=== PATIENT | male | born 1965 | race Caucasian/White ===

== ENCOUNTER 2018-12-18 06:24 | Observation (INO) | payer OTHER ==
[~2018-12-18] VITALS: Ht 193 cm; Wt 139.1 kg
[2018-12-18] VITALS (26 sets, daily range): BP systolic 125–164; BP diastolic 82–120; PULSE 63–101; RESP 11–24; Ht 193 cm; Wt 139.1 kg
[~2018-12-18 06:24] MED LIST: ASPI325T30 PO; ATOR20TA38 PO; BENA10TA4 PO; CHOL400T10 PO; CLOP75TA27 PO; FENO134C PO; GABA100C PO; GLIM4TAB PO; ISOS60TA PO; METO25TA4 PO; MTF1000T PO; NITR0.4T39 SL; OMEG100016 PO
[2018-12-18] MEDS ORDERED: SOD CHLORIDE 0.9% 1,000 ML IV ONE (07:30)
[2018-12-18] MEDS ORDERED: RAMI10CA48 PO (07:33)
[2018-12-18] MEDS ORDERED: FENTAnyl 50 MCG/ML VIAL ONE (07:45)
[2018-12-18] MEDS ORDERED: MIDAZOLAM 1 MG/ML 2 ML INJ ONE (07:45)
[2018-12-18] MEDS ORDERED: LIDOCAINE 1% (MDV) 20 ML INJ ONE (07:45)
[2018-12-18] MEDS ORDERED: IODIXANOL LOCM 100 ML BTL ONE (07:45)
[2018-12-18] MEDS ORDERED: SOD CHLORIDE 0.9% 500 ML ONE (07:56)
[2018-12-18] MEDS ORDERED: METHYLPREDNISOLONE 125 MG INJ ONE (08:16)
[2018-12-18] MEDS ORDERED: DIPHENHYDRAMINE 50 MG INJ ONE (08:16)
[2018-12-18] MEDS ORDERED: NITROGLYCERIN (IC) 100 MCG/ML INJ ONE (09:11)
[2018-12-18] MEDS ORDERED: CLOPIDOGREL 300 MG TAB ONE (09:24)
[2018-12-18] MEDS ORDERED: ASPIRIN 325 MG TAB ONE (09:24)
[2018-12-18] MEDS ORDERED: SOD CHLORIDE 0.9% 1,000 ML IV SCH (09:35)
--- NOTE | 2018-12-18 09:47 | OPR ---
Date/Time of Note Date/Time of Note DATE: 12/18/18 TIME: 09:40 Operative Report Procedure Date: December 18, 2018 Preoperative Diagnosis Abnormal stress test Postoperative Diagnosis Obstructive coronary artery disease Operation/Procedure Performed Left heart catheterization Right and left coronary angiogram Interpretation and supervision of right and left coronary angiogram Left ventricular pressure measurements PCI of the mid RCA with a placement of a 2.5 x 12 mm and 2.5 x 16 mm Synergy drug-eluting stent in overlapping fashion Right femoral artery approach with ultrasound guidance Conscious sedation Surgeon see signature line Assembler Type [employer]ment After School Program Director staff Anesthesia Type: MAC Estimated Blood Loss: minimal Transfusion none Specimen None Grafts/Implants none Complications none Pt Condition Post Procedure: stable Procedure Description Findings Hemodynamics LV pressure 156/-18 with EDP of 6 Aortic pressure 144/82 Coronary findings Left main is a large caliber vessel with no significant disease LAD is a medium caliber vessel with diffuse calcification, there is a mid 30% diffuse stenosis, distal 20% diffuse stenosis Circumflex is a medium caliber vessel with diffuse calcification, there is a mid 20% stenosis, distal 30% diffuse stenosis Right RCA was a large caliber vessel and ectatic with diffuse calcification and tortuosity. There was a mid 20% stenosis, the PDA at the bifurcation had an ostial 50 to 60% stenosis, mid PDA with a 99% stenosis. PLB with a mid 30% stenosis Description of procedure Patient brought to the After School Program Director after informed consent. Patient prepped and draped as per protocol. Right femoral artery access was obtained using ultrasound guidance and a 6 [place] sheath was placed. To engage the left main, we were unsuccessful with a 6 [place] JL4, JL 4.5, was able to engage with a JL 5. Svitlana Kenan was performed. We next used a JR4 catheter and entered the left ventricle and pressure measurements were obtained as well as pullback. We next did an angiogram of the RCA. Given the severe disease in the mid PDA as well as nuclear findings with ischemia in this territory, intervention was performed in the same setting. Heparin was used for anticoagulation, 6 [place] AL-1 guide catheter was used to engage the RCA. A run through wire was used to cross the lesion with moderate difficulty. We then predilated. We then stented with a 2.25 x 16 mm Synergy drug-eluting stent at high pressure. Of note, with stent placement, there was no flow seen distally because of the stenosis and was unclear the lesion was fully covered. After placement of the stent, we were able to see that the proximal aspect of the stenosis was not fully covered. We then used a 2.25 x 12 mm Synergy drug-eluting stent in overlapping fashion and covered the remaining of the stenosis. We postdilated at high pressure the amrit nts including the overlapping regions. There was an excellent angiographic result with KENDAL-3 flow with no evidence of dissection. Of note, there was a 50 to 60% stenosis of the ostial PDA. On review of the angiogram in 2014, this was present at that time as well. Given the moderate disease, as well as not being the culprit lesion and risk of jailing the PLB, would opt for aggressive medical management. All catheters and wires removed. An Angio-Seal was used in the right femoral artery with no immediate complications. Recommendations Aggressive medical management, dual antiplatelet therapy for minimum of 1 year to maintain stent patency. Blayne Edmond DO December 18, 2018 09:47
[2018-12-18] MEDS ORDERED: AL HYDROX/MG HYDROX/SIMETH 30 ML CUP PO PRN (10:00)
[2018-12-18] MEDS ORDERED: ACETAMINOPHEN 325 MG TAB PO PRN (10:00)
[2018-12-18] MEDS ORDERED: ONDANSETRON 4 MG INJ IV PRN (10:00)
--- NOTE | 2018-12-18 11:21 | HP ---
Date/Time of Note Date/Time of Note DATE: 12/18/18 TIME: 11:21 Assessment/Plan VTE Prophylaxis Pharmacological prophylaxis: NA/contraindicated Pharm contraindication: low risk/ambulating Lines/Catheters IV [facility]ter [facility]from [facility]): Peripheral IV Assessment/Plan Hospital Course 53-year-old male with comorbidities including dyslipidemia, hypertension, sleep apnea, diabetes mellitus type 2, CVA with no residual, and prior CAD with coronary artery stenting, who was brought in electively before left heart catheterization with PCI of mid RCA with placement of 2 Synergy drug-eluting stents, also being admitted to inpatient setting for further treatment evaluation. 1. Obstructive coronary artery disease. -Status post PCI of the mid RCA with placement of 2 drug-eluting stents in overlapping fashion. -Continue dual antiplatelet therapy. -Monitor in intensive care unit. -Resume cardiac medications including beta-blockers and statins. 2. Hypertension. -Continue antihypertensives. 3. DM type II. -Start the patient sliding scale insulin along with pre-meal insulin and basal insulin. -Obtain hemoglobin A1c to evaluate the blood glucose control over the past few weeks. -Diabetic education consult. 4. Dyslipidemia. -Resume statins. 5. Obstructive sleep apnea. -Resume nocturnal CPAP. 6. Obesity. -BMI more than 37. Plan: The patient will be admitted to inpatient intensive care unit floor. The patient will be started on a low-cholesterol, carbohydrate controlled diet. The patient will be started on DVT prophylaxis . The patient will remain a full code. Activities will be as tolerated. The rest of the patient's management will be based on the clinical course, inputs from consultants, and the results of diagnostic studies. Based on the patient's clinical presentation, he most probably requires at least 1 midnight's stay for further management and evaluation of his clinical presentation. The patient was seen in collaboration with Dr. Coronado. Result Diagram: 12/18/18 0712/18/18704 Results 24hrs Laboratory Tests Test 12/18/18 07:05 12/18/18 07:23 White Blood Count 6.7 Red Blood Count 5.38 Hemoglobin 15.3 Hematocrit 46.0 Mean Corpuscular Volume 85.5 Mean Corpuscular Hemoglobin 28.4 L Mean Corpuscular Hemoglobin Concent 33.3 Red Cell Distribution Width 13.2 Platelet Count 245 Mean Platelet Volume 10.3 # Immature Granulocytes % 0.500 H Neutrophils % 84.2 H Lymphocytes % 12.2 L Monocytes % 1.7 Eosinophils % 0.9 Basophils % 0.5 Nucleated Red Blood Cells % 0.0 Immature Granulocytes # 0.030 Neutrophils # 5.6 Lymphocytes # 0.8 Monocytes # 0.1 L Eosinophils # 0.1 Basophils # 0.0 Nucleated Red Blood Cells # 0.0 Prothrombin Time 12.1 Prothrombin Time Ratio 0.9 INR International Normalized Ratio 0.89 Activated Partial Thromboplast Time 28.4 Sodium Level 141 Potassium Level 5.3 H Chloride Level 107 Carbon Dioxide Level 22 Anion Gap 12 Blood Urea Nitrogen 33 H Creatinine 1.16 Est Glomerular Filtrat Rate mL/min > 60 Glucose Level 359 H Calcium Level 10.6 H Bedside Glucose 359 H HPI/ROS Admit Date/Time Admit Date/Time December 18, 2018 at 09:35 Hx of Present Illness This is a 53-year-old male with past medical history of hypertension, dyslipidemia, obstructive sleep apnea, diabetes mellitus type 2, CVA with no residual, CAD status post stenting of PDA and posterolateral branch of the RCA in 2014. The patient was brought to [facility] Phlebotomist Supervisor/Instructor for elective procedure. The patient reported that the he had a recent stress test that was reportedly abnormal. The patient had a PCI of the mid RCA with placement of 2 synergy drug-eluting stents in overlapping fashion via a right femoral artery approach. The patient is being admitted to inpatient setting for further treatment and monitoring. Industrial Servicer asked the hospitalist group to admit this patient to inpatient setting. The patient was in PACU upon initial evaluation. The patient denied any chest pain, dyspnea, or any other complaints. ROS Constitutional: no complaints Eyes: no complaints ENT: no complaints Respiratory: no complaints Cardiovascular: no complaints Gastrointestinal: no complaints Genitourinary: no complaints Musculoskeletal: no complaints Skin: no complaints Neurologic: no complaints Endocrine: no complaints Lymphatic: no complaints Psychological: no complaints Immunologic: no complaints PMH/Family/Social Past Medical History 1. Hypertension. 2. Diabetes mellitus type 2. 3. CAD status post prior coronary artery stenting. 4. Obstructive sleep apnea. 5. Dyslipidemia. 6. Obesity. 7. CVA with no residual deficits. Medications Current Medications Aspirin (Halfprin) 81 mg DAILY PO ; Start 12/19/18 at 09:00 Clopidogrel Bisulfate (plaVIX) 75 mg DAILY PO ; Start 12/19/18 at 09:00 Acetaminophen (Tylenol Tab) 650 mg Q4H PRN PO PAIN; Start 12/18/18 at 10:00 Al Hydrox/Mg Hydrox/Simethicone (Mag-Al Plus) 30 ml Q4H PRN PO GASTROINTESTINAL UPSET; Start 12/18/18 at 10:00 Ondansetron HCl (Zofran Inj) 4 mg Q4H PRN IV NAUSEA AND/OR VOMITING; Start 12/18/18 at 10:00 Sodium Chloride 1,000 ml @ 75 mls/hr [id number] IV ; Start 12/18/18 at 09:35; Stop 12/18/18 at 22:54 Atorvastatin Calcium (Lipitor) 40 mg HS PO ; Start 12/18/18 at 21:00 Metoprolol Tartrate (Lopressor) 25 mg BID PO ; Start 12/18/18 at 21:00 Coded Allergies: ibuprofen (Verified Allergy, Intermediate, HIVES, 06/30/15) tramadol (Verified Allergy, Unknown, 06/30/15) Uncoded Allergies: IV CONTRAST (Allergy, Unknown, RASH AND SKIN PEELING ALL OVER, 12/18/18) Past Surgical History 1. Tonsillectomy. 2. Left heart catheterization with stent placement to the PDA on 06/21/2015. 3. Left heart catheterization with stent placement to posterolateral branch of RCA on 06/27/2015. Social History The patient lives at home. Alcohol Use: occasionally Smoking Status: Former smoker Drug Use: marijuana Exam/Review of Systems Vital Signs Vitals Vital Signs Date Temp Pulse Resp B/P (MAP) Pulse Ox O2 O2 Flow FiO2 Time Delivery Rate 12/18/18 78 21 126/94 96 Room Air 10:34 (105) 12/18/18 98.0 10:05 Exam Exam General: Obese, 53 year-old male lying in bed in no apparent distress. HEENT: Normocephalic, atraumatic. Eyes: Anicteric sclerae, conjunctivae clear. ENT: Nasal septum midline, oral mucosa moist. Neck: Short and obese. Respiratory: Bilaterally diminished breath sounds. No use of accessory muscles of respiration. No adventitious breath sounds. Cardiovascular: S1, S2 heard. Regular rate and rhythm. Abdomen: Soft, nontender, and nondistended. Bowel sounds positive in all 4 quadrants. Genitourinary: Right groin access site with no evidence of hematoma or bruising. Extremities: No cyanosis, no clubbing, no edema. Peripheral pulses palpable. Neurologic: Cranial nerves II through XII grossly intact. The patient is awake, alert, and oriented. Skin: Normal skin turgor. No skin rashes. Additional Comments Operative Report Procedure Date: December 18, 2018 Preoperative Diagnosis Abnormal stress test Postoperative Diagnosis Obstructive coronary artery disease Operation/Procedure Performed Left heart catheterization Right and left coronary angiogram Interpretation and supervision of right and left coronary angiogram Left ventricular pressure measurements PCI of the mid RCA with a placement of a 2.5 x 12 mm and 2.5 x 16 mm Synergy drug-eluting stent in overlapping fashion Right femoral artery approach with ultrasound guidance MELE CASTELLANOS NP December 18, 2018 11:21
[2018-12-18] MEDS ORDERED: GLUCOSE GEL 15 GRAM TUBE PO PRN ×2 (12:00)
[2018-12-18] MEDS ORDERED: GLUCOSE GEL 15 GRAM TUBE BUCCAL PRN (12:00)
[2018-12-18] MEDS ORDERED: GLUCAGON 1 MG INJ IM PRN (12:00)
[2018-12-18] MEDS ORDERED: DEXTROSE 50% 50 ML SYRINGE IV PRN ×2 (12:00)
--- NOTE | 2018-12-18 12:23 | CONS ---
Assessment/Plan Assessment/Plan Hospital Course (Demo Recall) CAD status post PCI to PDA with a placement of 2 drug-eluting stents 12/18/2018 Diabetes Hypertension Renal dysfunction -Patient with nuclear cardiac perfusion study with evidence of ischemia, patient status post cardiac catheter this morning status post 2 drug-eluting stents to PDA. -Dual antiplatelet therapy for minimum of 1 year to maintain stent patency -Statin therapy, beta-blockers heart rate and blood pressure permits -Aggressive diabetes management. I have requested nutrition and service desk associate to evaluate patient -Renal dysfunction, I requested renal for evaluation Consultation Date/Type/Reason Admit Date/Time December 18, 2018 at 09:35 Type of Consult Cardiology Reason for Consultation Coronary artery disease Date/Time of Note DATE: 12/18/18 TIME: 12:20 Hx of Present Illness This is a 53-year-old male with past medical history of CAD with multiple PCI's in 2014, hypertension, diabetes who presents secondary to abnormal nuclear stress test performed at outside facility. Patient was having intermittent chest discomfort at that time. She denies any current shortness of breath. Denies any dizziness or lightheadedness. 12 point review of systems was performed with all pertinent positives and negatives mentioned above and all else is negative Past Medical History Medical History: coronary artery disease, diabetes, high cholesterol Home Meds Active Scripts Aspirin* (Aspirin*) 325 Mg Tablet, 325 MG PO DAILY, #30 TAB 3 Refills Prov:LASHAY CORADO MD 06/28/15 Clopidogrel Bisulfate (Clopidogrel) 75 Mg Tab, 75 MG PO DAILY, #30 TAB 12 Refills Prov:LASHAY CORADO MD 06/28/15 Atorvastatin Calcium* (Atorvastatin Calcium*) 20 Mg Tab, 40 MG PO HS, #30 Prov:ALCIRA CHAHAL 06/22/15 Reported Medications Ramipril (Ramipril) 10 Mg Capsule, 10 MG PO DAILY, CAP 12/18/18 Isosorbide Mononitrate* (Isosorbide Mononitrate*) 60 Mg Tab.er.24h, 60 MG PO DAILY, TAB 06/30/15 [place]-3 Fatty Acids ([place]-3) 1,000 Mg Capsule, 1000 MG PO DAILY 06/18/15 Metoprolol Tartrate* (Lopressor*) 25 Mg Tablet, 25 MG PO BID, TAB 06/18/15 Gabapentin* (Neurontin*) 100 Mg Capsule, 300 MG PO TID, CAP 06/18/15 Nitroglycerin* (Nitrostat*) 0.4 Mg Tab.subl, 0.4 MG SL Q5MIN PRN for CHEST PAIN, BOTTLE 06/18/15 Cholecalciferol* (Vitamin D*) 400 Unit Tablet, 400 UNIT PO DAILY, TAB 06/18/15 Fenofibrate, Micronized (Fenofibrate) 134 Mg Capsule, 134 MG PO DAILY, CAP 06/18/15 Benazepril Hcl* (Benazepril Hcl*) 10 Mg Tablet, 10 MG PO DAILY, TAB 06/18/15 Glimepiride* (Glimepiride*) 4 Mg Tablet, 4 MG PO BID, TAB 12/11/14 Metformin* (Glucophage*) 1,000 Mg Tablet, 1000 MG PO BID, TAB 12/11/14 Medications Current Medications Aspirin (Halfprin) 81 mg DAILY PO ; Start 12/19/18 at 09:00 Clopidogrel Bisulfate (plaVIX) 75 mg DAILY PO ; Start 12/19/18 at 09:00 Acetaminophen (Tylenol Tab) 650 mg Q4H PRN PO PAIN; Start 12/18/18 at 10:00 Al Hydrox/Mg Hydrox/Simethicone (Mag-Al Plus) 30 ml Q4H PRN PO GASTROINTESTINAL UPSET; Start 12/18/18 at 10:00 Ondansetron HCl (Zofran Inj) 4 mg Q4H PRN IV NAUSEA AND/OR VOMITING; Start 12/18/18 at 10:00 Sodium Chloride 1,000 ml @ 75 mls/hr [id number] IV Last administered on 12/18/18at 11:54; Admin Dose 75 MLS/HR; Start 12/18/18 at 09:35; Stop 12/18/18 at 22:54 Atorvastatin Calcium (Lipitor) 40 mg HS PO ; Start 12/18/18 at 21:00 Metoprolol Tartrate (Lopressor) 25 mg BID PO ; Start 12/18/18 at 21:00 Insulin Glargine (Lantus) 21 units DAILY@2000 SC ; Start 12/18/18 at 20:00 Insulin Aspart (Novolog Insulin Pen) 7 unit WITH MEALS SC ; Start 12/18/18 at 12:00 Insulin Aspart (Novolog Insulin Pen) NOVOLOG *MILD* ALGORITHM WITH MEALS BEDTIME SC ; Start 12/18/18 at 12:00 Miscellaneous Information 1 ea NOTE XX ; Start 12/18/18 at 12:00 Glucose (Glutose) 15 gm Q15M PRN PO DECREASED GLUCOSE; Start 12/18/18 at 12:00 Glucose (Glutose) 22.5 gm Q15M PRN PO DECREASED GLUCOSE; Start 12/18/18 at 12:00 Dextrose (D50w Syringe) 25 ml Q15M PRN IV DECREASED GLUCOSE; Start 12/18/18 at 12:00 Dextrose (D50w Syringe) 50 ml Q15M PRN IV DECREASED GLUCOSE; Start 12/18/18 at 12:00 Glucagon (Glucagen) 1 mg Q15M PRN IM DECREASED GLUCOSE; Start 12/18/18 at 12:00 Glucose (Glutose) 15 gm Q15M PRN BUCCAL DECREASED GLUCOSE; Start 12/18/18 at 12:00 Allergies: Coded Allergies: ibuprofen (Verified Allergy, Intermediate, HIVES, 06/30/15) tramadol (Verified Allergy, Unknown, 06/30/15) Uncoded Allergies: IV CONTRAST (Allergy, Unknown, RASH AND SKIN PEELING ALL OVER, 12/18/18) Past Surgical History Past Surgical Hx: angioplasty Social History Alcohol Use: occasionally Smoking Status: Former smoker Drug Use: marijuana Exam/Review of Systems Vital Signs Vitals Vital Signs Date Temp Pulse Resp B/P (MAP) Pulse Ox O2 O2 Flow FiO2 Time Delivery Rate 12/18/18 78 21 126/94 96 Room Air 10:34 (105) 12/18/18 98.0 10:05 Exam Constitutional: alert, oriented (Obese, no apparent distress) Head: normocephalic Respiratory: clear to auscultation, normal air movement Cardiovascular: regular rate and rhythm (S1-S2 heard) Gastrointestinal: soft, non-tender, bowel sounds Extremities: edema (Trace) Labs Result Diagram: 12/18/18 0705 12/18/18 0705 Results 24hrs Laboratory Tests Test 12/18/18 07:05 12/18/18 07:23 White Blood Count 6.7 Red Blood Count 5.38 Hemoglobin 15.3 Hematocrit 46.0 Mean Corpuscular Volume 85.5 Mean Corpuscular Hemoglobin 28.4 L Mean Corpuscular Hemoglobin Concent 33.3 Red Cell Distribution Width 13.2 Platelet Count 245 Mean Platelet Volume 10.3 # Immature Granulocytes % 0.500 H Neutrophils % 84.2 H Lymphocytes % 12.2 L Monocytes % 1.7 Eosinophils % 0.9 Basophils % 0.5 Nucleated Red Blood Cells % 0.0 Immature Granulocytes # 0.030 Neutrophils # 5.6 Lymphocytes # 0.8 Monocytes # 0.1 L Eosinophils # 0.1 Basophils # 0.0 Nucleated Red Blood Cells # 0.0 Prothrombin Time 12.1 Prothrombin Time Ratio 0.9 INR International Normalized Ratio 0.89 Activated Partial Thromboplast Time 28.4 Sodium Level 141 Potassium Level 5.3 H Chloride Level 107 Carbon Dioxide Level 22 Anion Gap 12 Blood Urea Nitrogen 33 H Creatinine 1.16 Est Glomerular Filtrat Rate mL/min > 60 Glucose Level 359 H Calcium Level 10.6 H Bedside Glucose 359 H Medications Medications Current Medications Aspirin (Halfprin) 81 mg DAILY PO ; Start 12/19/18 at 09:00 Clopidogrel Bisulfate (plaVIX) 75 mg DAILY PO ; Start 12/19/18 at 09:00 Acetaminophen (Tylenol Tab) 650 mg Q4H PRN PO PAIN; Start 12/18/18 at 10:00 Al Hydrox/Mg Hydrox/Simethicone (Mag-Al Plus) 30 ml Q4H PRN PO GASTROINTESTINAL UPSET; Start 12/18/18 at 10:00 Ondansetron HCl (Zofran Inj) 4 mg Q4H PRN IV NAUSEA AND/OR VOMITING; Start 12/18/18 at 10:00 Sodium Chloride 1,000 ml @ 75 mls/hr [id number] IV Last administered on 12/18/18at 11:54; Admin Dose 75 MLS/HR; Start 12/18/18 at 09:35; Stop 12/18/18 at 22:54 Atorvastatin Calcium (Lipitor) 40 mg HS PO ; Start 12/18/18 at 21:00 Metoprolol Tartrate (Lopressor) 25 mg BID PO ; Start 12/18/18 at 21:00 Insulin Glargine (Lantus) 21 units DAILY@2000 SC ; Start 12/18/18 at 20:00 Insulin Aspart (Novolog Insulin Pen) 7 unit WITH MEALS SC ; Start 12/18/18 at 12:00 Insulin Aspart (Novolog Insulin Pen) NOVOLOG *MILD* ALGORITHM WITH MEALS BEDTIME SC ; Start 12/18/18 at 12:00 Miscellaneous Information 1 ea NOTE XX ; Start 12/18/18 at 12:00 Glucose (Glutose) 15 gm Q15M PRN PO DECREASED GLUCOSE; Start 12/18/18 at 12:00 Glucose (Glutose) 22.5 gm Q15M PRN PO DECREASED GLUCOSE; Start 12/18/18 at 12:00 Dextrose (D50w Syringe) 25 ml Q15M PRN IV DECREASED GLUCOSE; Start 12/18/18 at 12:00 Dextrose (D50w Syringe) 50 ml Q15M PRN IV DECREASED GLUCOSE; Start 12/18/18 at 12:00 Glucagon (Glucagen) 1 mg Q15M PRN IM DECREASED GLUCOSE; Start 12/18/18 at 12:00 Glucose (Glutose) 15 gm Q15M PRN BUCCAL DECREASED GLUCOSE; Start 12/18/18 at 12:00 Blayne Edmond DO December 18, 2018 12:23
[2018-12-18] MEDS: INSULIN ASPART [NOVOLOG] 3 ML PEN SC SCH ×5 (13:34→21:07)
--- NOTE | 2018-12-18 15:56 | RADRPT ---
Vent Rate: 69 bpm RR Interval: 868 msec CA Interval: 260 msec QRS Duration: 127 msec QT Interval: 432 msec QTC Interval: 464 msec P-R-T [place]: 82 - -63 - 26 degrees Sinus rhythm...normal P axis, V-rate 50- 99 Prolonged CA interval...CA >210, V-rate 50- 90 Nonspecific IVCD with LAD...QRSd >115mS & LAD Left ventricular hypertrophy...multiple LVH criteria Anterior Q waves, possibly due to LVH...Q >30mS in V2-V5 & LVH Electronically Signed By: Alfonso Nunez
[2018-12-18] MEDS ORDERED: METOPROLOL 50 MG TAB PO ONE (19:24)
[2018-12-18] MEDS ORDERED: INSULIN GLARGINE [LANTus] (100 UNITS/ML) SYG SC SCH (20:00)
--- NOTE | 2018-12-18 20:55 | CONS ---
DATE OF ADMISSION: 12/18/2018 DATE OF CONSULTATION: 12/18/2018 TYPE OF CONSULTATION: Nephrology. REASON FOR CONSULTATION: Hyperkalemia. PHYSICIAN REQUESTING CONSULT: Dr. Edmond. HISTORY OF PRESENT ILLNESS: This is a 53-year-old male with a past medical history of dyslipidemia, hypertension, sleep apnea, diabetes, CVA, and history of recurrent C who presents to [facility] to undergo cardiac catheterization by info print press operator, Dr. Edmond. The patient reportedly had a recent abnormal stress test. Given his history of coronary artery disease, the patient underwe nt cardiac catheterization. The patient had PCI of his mid RCA and replacement drug-eluting st ents. The patient following the procedure went to the intensive care unit for evaluation. In terms of patient's renal history, the patient has had normal renal function and creatinines in the past. Upon admission, the patient noted to have elevated BUN of 33, potassium 5.3 mEq/L. The patie nt denies any hemoptysis, hematemesis, or hematochezia. PAST MEDICAL HISTORY: As stated above, history of hypertension, history of diabetes, history of dysl ipidemia, sleep apnea, CVA, and history of coronary artery disease. PAST SURGICAL HISTORY: 1. Status post PCI. 2. History of tonsillectomy. FAMILY HISTORY: No family history of kidney disease. SOCIAL HISTORY: Former smoker. MEDICATIONS: The patient's medications have been reviewed. ALLERGIES: HAVE BEEN REVIEWED. THE PATIENT IS ALLERGIC TO IV CONTRAST. REVIEW OF SYSTEMS: A 14-point review of systems was conducted. Pertinent positives are as stated i n the HPI, otherwise negative. PHYSICAL EXAMINATION: VITAL SIGNS: Blood pressure is 141, respiration 19, pulse is 73, and temperature 97.8. HEENT: Head is normocephalic. Pupils are reactive to light. NECK: Supple. HEART: Regular rate. LUNGS: Show diminished breath sounds at the base. ABDOMEN: Soft. Nontender to palpation without rebound or guarding. Positive obesity. EXTREMITIES: Negative for clubbing or cyanosis. No edema. DERMATOLOGIC: No rashes. MUSCULOSKELETAL: No joint effusion. NEUROLOGIC: No focal deficits. The patient's medications have been reviewed. LABORATORY DATA: On 12/18/2018 was reviewed. ASSESSMENT AND PLAN: This is a 53-year-old male who presents with: 1. Hyperkalemia. Etiology is likely secondary to hyperglycemia. Recommendation would be to obtain euglycemia and repeat renal panel. Would expect potassium levels normalize. We will start the patie nt on a low-potassium diet. 2. , renal insufficiency. Etiology may be secondary to hemodynamics. Plan is to check UA with microanalysis. We will check urine electrolytes. We will quantify any proteinuria in the setting o f diabetes and monitor closely. Additionally, we will monitor for any signs of contrast-associated n ephropathy. We will continue gentle IV hydration. 3. Coronary artery disease. The patient is status post percutaneous coronary intervention to the [facility] coronary artery. Continue current medical management. Continue antiplatelet therapy. Follow up with cardiology. 4. Hypertension. Continue blood pressure regimen. 5. Diabetes. Continue current insulin regimen. 6. Continue statin therapy. 7. Tachycardia. Continue CPAP. 8. Obesity. Continue dietary modification. Thank you, Dr. Edmond, for this interesting consult. It will be a pleasure to follow patient with yo u throughout the hospital course. Dictated By: DONALD NEAL DO NR/NTS Conf#: [id number] DID#: [id number] CC: DANIS FLORES; DARREL KIDD MD; TELLO CASTELLON MD; ISRAEL PERKINS MD; ALEXANDRA MCKENZIE MD; LILIANA VERGARA DO; IZA TERRAZAS MD; ISRAEL CORONA MD; DARREL HUNG MD;*EndCC*
[2018-12-18] MEDS ORDERED: METOPROLOL 25 MG TAB PO SCH (21:00)
[2018-12-18] MEDS ORDERED: METOPROLOL 50 MG TAB PO SCH (21:00)
[2018-12-18] MEDS ORDERED: ATORVASTATIN 40 MG TAB PO SCH (21:00)
[2018-12-18] MEDS: GABAPENTIN 300 MG CAP PO SCH (21:03)
[2018-12-18] MEDS ORDERED: hydrALAzine 20 MG INJ IV PRN (22:30)
[2018-12-19] VITALS (19 sets, daily range): BP systolic 102–163; BP diastolic 55–103; PULSE 62–81; RESP 8–20
[2018-12-19] MEDS ORDERED: MAGNESIUM SULFATE 2 GM/50 ML 50 ML IVPB ONE ×3 (06:30→10:30)
[2018-12-19] MEDS: INSULIN ASPART [NOVOLOG] 3 ML PEN SC SCH ×3 (08:01→11:55)
--- NOTE | 2018-12-19 08:15 | PN ---
DATE: 12/19/2018 SUBJECTIVE: The patient this morning is stable. The patient is describing feeling not himself, but denies any chest pain, fevers, chills, nausea, vomiting. OBJECTIVE: VITAL SIGNS: Blood pressure is 152/102, respirations 20, pulse 75, temperature 98.2. HEENT: Head is normocephalic. NECK: Supple. HEART: Regular rate. LUNGS: Show diminished breath sounds at the base. ABDOMEN: Soft, nontender to palpation without rebound or guarding. EXTREMITIES: Negative for clubbing, cyanosis, no edema. DERMATOLOGIC: No rashes. MUSCULOSKELETAL: No joint effusion. NEUROLOGIC: No change in exam. MEDICATIONS: The patient's medications have been reviewed. LABORATORY DATA: From 12/19/2018 was reviewed. ASSESSMENT AND PLAN: 1. Hyperkalemia, resolved. Etiology is likely secondary to hyperglycemia. The patient's potassium levels have normalized. We would continue current medical management and monitor closely. 2. Azotemia/renal insufficiency. Etiology is likely secondary to hemodynamics. Renal function is s table, no evidence of contrast-associated nephropathy. Continue to monitor. 3. Hypomagnesemia. We will replete with magnesium sulfate 2 grams IV. 4. Coronary artery disease, status post percutaneous coronary intervention to the right coronary art gui. Continue medical management. Continue antibiotic therapy. 5. Diabetes. Continue to adjust insulin regimen. 6. Hypertension. Continue current blood pressure regimen. 7. Leukocytosis, systemic inflammatory response syndrome, likely secondary to stress. No evidence o f infection. Continue to monitor. 8. Obesity. Continue dietary modification. 9. Sleep apnea. Continue CPAP. Dictated By: DONALD NEAL DO NR/NTS Conf#: [id number] DID#: [id number] CC: ISRAEL PERKINS MD;*EndCC*
[2018-12-19] MEDS ORDERED: CLOPIDOGREL 75 MG TAB PO SCH (09:00)
[2018-12-19] MEDS ORDERED: ASPIRIN (EC) 81 MG TAB PO SCH (09:00)
[2018-12-19] MEDS: GABAPENTIN 300 MG CAP PO SCH ×2 (09:08→12:03)
[2018-12-19] MEDS ORDERED: BENAZEPRIL 10 MG TAB PO SCH (10:30)
[2018-12-19] MEDS ORDERED: MTF1000T PO (11:19)
[2018-12-19] MEDS ORDERED: INSU100I12 SQ (11:19)
[2018-12-19] MEDS ORDERED: ASPI-1044 PO (11:19)
[2018-12-19] MEDS ORDERED: INSU100I33 SC (11:19)
[2018-12-19] MEDS ORDERED: GLIP10TA14 PO (11:20)
[2018-12-19] MEDS ORDERED: INSULIN ASPART [NOVOLOG] 3 ML PEN SC SCH (11:30)
--- NOTE | 2018-12-19 11:30 | CONS ---
Assessment/Plan Assessment/Plan Hospital Course (Demo Recall) CAD status post PCI to PDA with a placement of 2 drug-eluting stents 12/18/2018 Diabetes Hypertension Renal dysfunction -Patient with nuclear cardiac perfusion study with evidence of ischemia, patient status post cardiac catheterization yesterday and status post 2 drug-eluting stents to PDA. -Dual antiplatelet therapy for minimum of 1 year to maintain stent patency -Statin therapy, beta-blockers heart rate and blood pressure permits -Aggressive diabetes management. I have requested nutrition and nurses educator to evaluate patient-still pending -Spoke to nephrology, okay to restart QAMAR inhibitor -DC planning Consultation Date/Type/Reason Admit Date/Time December 18, 2018 at 09:35 Initial Consult Date Type of Consult Cardiology Date/Time of Note DATE: 12/19/18 TIME: 11:28 24 HR Interval Summary Free Text/Dictation Denies chest pain, shortness of breath, palpitations. Ambulating without any symptoms Exam/Review of Systems Vital Signs Vitals Vital Signs Date Temp Pulse Resp B/P (MAP) Pulse Ox O2 O2 Flow FiO2 Time Delivery Rate 12/19/18 18 137/98 97 Room Air 10:00 (111) 12/19/18 72 09:00 12/19/18 97.9 08:00 12/19/18 30 05:11 Intake and Output 12/18/18 12/18/18 12/19/18 1515:00 23:00 07:00 IntakeIntake Total 825 ml 1000 ml 215 ml OutputOutput Total 550 ml 1150 ml BalanceBalance 825 ml 450 ml -935 ml Exam Constitutional: alert, oriented (No apparent distress) Head: normocephalic Respiratory: clear to auscultation, normal air movement Cardiovascular: regular rate and rhythm (S1-S2 heard) Gastrointestinal: soft, non-tender, bowel sounds Extremities: other (No edema, right groin is soft, +2 pulse, no hematoma felt) Labs Result Diagram: 12/19/1843912/19/18439 Results 24hrs Laboratory Tests Test 12/18/18 13:31 12/18/18 17:25 12/18/18 20:05 12/18/18 21:05 Bedside Glucose 267 H 272 H 299 H 275 H Test 12/19/18 04:40 12/19/18 07:51 White Blood Count 14.9 #H Red Blood Count 4.93 Hemoglobin 14.2 Hematocrit 42.2 Mean Corpuscular Volume 85.6 Mean Corpuscular 28.8 L Hemoglobin Mean Corpuscular 33.6 Hemoglobin Concent Red Cell Distribution 13.2 Width Platelet Count 230 Mean Platelet Volume 10.0 Immature Granulocytes % 0.500 H Neutrophils % 81.0 H Lymphocytes % 11.0 L Monocytes % 7.2 Eosinophils % 0.2 Basophils % 0.1 Nucleated Red Blood 0.0 Cells % Immature Granulocytes # 0.070 H Neutrophils # 12.1 H Lymphocytes # 1.6 Monocytes # 1.1 H Eosinophils # 0.0 Basophils # 0.0 Nucleated Red Blood 0.0 Cells # Sodium Level 140 Potassium Level 4.8 Chloride Level 106 Carbon Dioxide Level 25 Anion Gap 9 Blood Urea Nitrogen 31 H Creatinine 1.20 Est Glomerular Filtrat > 60 Rate mL/min Glucose Level 270 H Calcium Level 9.5 Phosphorus Level 4.3 Magnesium Level 1.6 L Bedside Glucose 263 H Medications Medications Current Medications Aspirin (Halfprin) 81 mg DAILY PO Last administered on 12/19/18at 09:09; Admin Dose 81 MG; Start 12/19/18 at 09:00 Clopidogrel Bisulfate (plaVIX) 75 mg DAILY PO Last administered on 12/19/18at 09:08; Admin Dose 75 MG; Start 12/19/18 at 09:00 Acetaminophen (Tylenol Tab) 650 mg Q4H PRN PO PAIN; Start 12/18/18 at 10:00 Al Hydrox/Mg Hydrox/Simethicone (Mag-Al Plus) 30 ml Q4H PRN PO GASTROINTESTINAL UPSET; Start 12/18/18 at 10:00 Ondansetron HCl (Zofran Inj) 4 mg Q4H PRN IV NAUSEA AND/OR VOMITING; Start 12/18/18 at 10:00 Atorvastatin Calcium (Lipitor) 40 mg HS PO Last administered on 12/18/18at 21:03; Admin Dose 40 MG; Start 12/18/18 at 21:00 Insulin Glargine (Lantus) 21 units DAILY@2000 SC Last administered on 12/18/18at 20:07; Admin Dose 21 UNITS; Start 12/18/18 at 20:00 Miscellaneous Information 1 ea NOTE XX ; Start 12/18/18 at 12:00 Glucose (Glutose) 15 gm Q15M PRN PO DECREASED GLUCOSE; Start 12/18/18 at 12:00 Glucose (Glutose) 22.5 gm Q15M PRN PO DECREASED GLUCOSE; Start 12/18/18 at 12:00 Dextrose (D50w Syringe) 25 ml Q15M PRN IV DECREASED GLUCOSE; Start 12/18/18 at 12:00 Dextrose (D50w Syringe) 50 ml Q15M PRN IV DECREASED GLUCOSE; Start 12/18/18 at 12:00 Glucagon (Glucagen) 1 mg Q15M PRN IM DECREASED GLUCOSE; Start 12/18/18 at 12:00 Glucose (Glutose) 15 gm Q15M PRN BUCCAL DECREASED GLUCOSE; Start 12/18/18 at 12:00 Metoprolol Tartrate (Lopressor) 50 mg BID PO Last administered on 12/19/18at 09:09; Admin Dose 50 MG; Start 12/18/18 at 21:00 Gabapentin (Neurontin) 300 mg TID PO Last administered on 12/19/18at 09:08; Admin Dose 300 MG; Start 12/18/18 at 21:00 Hydralazine HCl (Apresoline) 10 mg Q4H PRN IV systolic above 170; Start 12/18/18 at 22:30 Insulin Aspart (Novolog Insulin Pen) NOVOLOG *MODERATE* ALGORITHM WITH MEALS BEDTIME SC Last administered on 12/19/18at 08:02; Admin Dose 8 UNIT; Start 12/19/18 at 07:35 Insulin Aspart (Novolog Insulin Pen) 9 unit WITH MEALS SC ; Start 12/19/18 at 11:30 Benazepril HCl (Lotensin) 10 mg DAILY PO ; Start 12/19/18 at 10:30 Blayne Edmond DO December 19, 2018 11:29
--- NOTE | 2018-12-19 11:34 | PDOCDIS ---
Discharge Instructions CONDITION [id number] Patient Condition: [id number] Stable OTHER ORDERS: Other Orders: 1. Resume home medications. Start taking metformin only from 12/20/2018 evening dose. 2. Continue aspirin and Plavix. Do not stop taking aspirin and Plavix unless you talk to your party plan sales consultant. 3. Resume activities as tolerated. 4. Follow a low-cholesterol, low carbohydrate diet. 5. Follow-up with your party plan sales consultant as scheduled. 6. Please go to the nearest emergency room if you have any chest pain, significant shortness of breath, or any other unusual signs/symptoms. MELE CASTELLANOS NP December 19, 2018 11:34
--- NOTE | 2018-12-19 11:39 | DS ---
Date/Time of Note Date/Time of Note DATE: 12/19/18 TIME: 11:37 Discharge Summary Admission/Discharge Info Admit Date/Time December 18, 2018 at 09:35 Discharge Date/Time Discharge Diagnosis 1. Obstructive coronary artery disease. Status post PCI of the mid RCA with pl acement of 2 drug-eluting stents in overlapping fashion. 2. Hypertension. 3. DM type II. A1C 8.8. 4. Dyslipidemia. 5. Obstructive sleep apnea. 6. Obesity. BMI more than 37. 7. Marijuana use. Patient Condition: Stable Consults 1. Blayne Edmond DO, Cardiology. 2. Anuel Oliva DO, Nephrology. Procedures Operative Report Procedure Date: December 18, 2018 Preoperative Diagnosis Abnormal stress test Postoperative Diagnosis Obstructive coronary artery disease Operation/Procedure Performed Left heart catheterization Right and left coronary angiogram Interpretation and supervision of right and left coronary angiogram Left ventricular pressure measurements PCI of the mid RCA with a placement of a 2.5 x 12 mm and 2.5 x 16 mm Synergy dana g-eluting stent in overlapping fashion Right femoral artery approach with ultrasound guidance Conscious sedation Hx of Present Illness This is a 53-year-old male with past medical history of hypertension, dyslipidemia, obstructive sleep apnea, diabetes mellitus type 2, CVA with no residual, CAD status post stenting of PDA and posterolateral branch of the RCA in 2014. The patient was brought to [facility] for elective procedure. The patient reported that the he had a recent stress test that was reportedly abnormal. The patient had a PCI of the mid RCA with placement of 2 synergy drug-eluting stents in overlapping fashion via a right femoral artery approach. The patient is being admitted to inpatient setting for further treatment and monitoring. [place] [employer] asked the hospitalist group to admit this patient to inpatient setting. The patient was in PACU upon initial evaluation. The patient denied any chest pain, dyspnea, or any other complaints. Hospital Course The patient was admitted to intensive care unit for close monitoring. The patient was started on dual antiplatelet therapy. Patient was maintained on cardiac medications including beta-blockers and statins. The patient's QAMAR in hibitors were withheld because patient had some hyperkalemia (5.3) on the day of admission. Because of underlying hyperkalemia, the patient was being followed by nephrology. Once the patient's hyperkalemia was resolved, the patient was resumed on QAMAR inhibitors. The patient has underlying essential hypertension. He was maintained on antihypertensives for the same. Patient has underlying diabetes mellitus type 2. Upon discharge, the patient will be resumed on his diabetic regimen too. The patient's hemoglobin A1c was found to be 8.8, indicating suboptimal control. The patient was maintained on sliding scale insulin along with pre-meal insulin and basal insulin. Metformin was withheld because of IV dye use during the procedure. Diabetes education consult was obtained. At home, the patient takes Basaglar 50 units subcutaneously twice daily and Humalog 10 units subcutaneously twice daily. The patient's Humalog will be changed to 10 units subcutaneously 3 times a day with meals. The patient will be resumed on metformin starting 12/20/2018 from the evening dose. The patient will be continued on her sulfonylureas. The patient has underlying dyslipidemia. The patient was maintained on statins for the same. The patient has a history of obstructive sleep apnea. The patient was maintained on nocturnal CPAP during his hospital stay. Patient is obese with a BMI of more than 37 kg/m. The patient was advised on weight reduction. The patient was cleared by cardiology to be discharged home, to be followed up with outpatient cardiology. Discharge Instructions 1. Resume home medications. Start taking metformin only from 12/20/2018 evening dose. 2. Continue aspirin and Plavix. Do not stop taking aspirin and Plavix unless you talk to your general accounting clerk. 3. Resume activities as tolerated. 4. Follow a low-cholesterol, low carbohydrate diet. 5. Follow-up with your general accounting clerk as scheduled. 6. Please go to the nearest emergency room if you have any chest pain, significant shortness of breath, or any other unusual signs/symptoms. The patient verbalized understanding of his discharge instructions. At this time I would like to thank all the consultants for seeing the patient, doing the necessary procedures, and providing clinical recommendations. The patient was seen in collaboration with Dr. Coronado. Home Meds Active Scripts Glipizide* (Glipizide*) 10 Mg Tablet, 10 MG PO AC BREAKFAST for 30 Days, TAB Patient already has supplies at home. Prov:MELE CASTELLANOS MECHANICAL SPREADER OPERATOR 12/19/18 Insulin Lispro (Humalog Kwikpen U-100) 100 Unit/1 Ml Insuln.pen, 10 UNIT SQ TID with meals, #1 EA Patient already has supplies at home. Prov:MELE CASTELLANOS NP 12/19/18 Insulin Glargine,Hum.rec.anlog (Basaglar Deanikpen U-100) 100 Unit/1 Ml Insuln.pen, 50 UNIT SC BID, #1 EA Patient already has supplies at home. Prov:MELE CASTELLANOS NP 12/19/18 Aspirin Delayed Release (Aspirin Delayed Release) 81 Mg Tablet.dr, 81 MG PO DAILY, #30 TAB Patient already has supplies. Prov:MELE CASTELLANOS NP 12/19/18 Metformin* (Glucophage*) 1,000 Mg Tablet, 1000 MG PO BID, #60 TAB Start only on 12/20/2018 from the evening dose. Prov:MELE CASTELLANOS NP 12/19/18 Clopidogrel Bisulfate (Clopidogrel) 75 Mg Tab, 75 MG PO DAILY, #30 TAB 12 Refills Prov:LASHAY CORADO MD 06/28/15 Atorvastatin Calcium* (Atorvastatin Calcium*) 20 Mg Tab, 40 MG PO HS, #30 Prov:ALCIRA CHAHAL 06/22/15 Reported Medications Isosorbide Mononitrate* (Isosorbide Mononitrate*) 60 Mg Tab.er.24h, 60 MG PO DAILY, TAB 06/30/15 Eagle-3 Fatty Acids (Eagle-3) 1,000 Mg Capsule, 1000 MG PO DAILY 06/18/15 Metoprolol Tartrate* (Lopressor*) 25 Mg Tablet, 25 MG PO BID, TAB 06/18/15 Gabapentin* (Neurontin*) 100 Mg Capsule, 300 MG PO TID, CAP 06/18/15 Nitroglycerin* (Nitrostat*) 0.4 Mg Tab.subl, 0.4 MG SL Q5MIN PRN for CHEST PAIN, BOTTLE 06/18/15 Cholecalciferol* (Vitamin D*) 400 Unit Tablet, 400 UNIT PO DAILY, TAB 06/18/15 Fenofibrate, Micronized (Fenofibrate) 134 Mg Capsule, 134 MG PO DAILY, CAP 06/18/15 Benazepril Hcl* (Benazepril Hcl*) 10 Mg Tablet, 10 MG PO DAILY, TAB 06/18/15 Discontinued Reported Medications Ramipril (Ramipril) 10 Mg Capsule, 10 MG PO DAILY, CAP 12/18/18 Glimepiride* (Glimepiride*) 4 Mg Tablet, 4 MG PO BID, TAB 12/11/14 Discontinued Scripts Aspirin* (Aspirin*) 325 Mg Tablet, 325 MG PO DAILY, #30 TAB 3 Refills Prov:LASHAY CORADO MD 06/28/15 Follow-up Plan Patient to follow-up with his general accounting clerk as scheduled. Primary Care Provider Not On Staff Doctor Time spent on discharge: > 30 minutes Pending Labs Laboratory Tests Test 12/18/18 13:31 12/18/18 17:25 12/18/18 20:05 12/18/18 21:05 Bedside 267 272 299 275 Glucose mg/dL (70-220) mg/dL (70-220) mg/dL (70-220) mg/dL (70-220) Test 12/19/18 04:40 12/19/18 07:51 White Blood 14.9 Count 10^3/ul (4.8-10 .8) Red Blood 4.93 Count 10^6/ul (4.70-6 .10) Hemoglobin 14.2 g/dl (14.0-18.0 ) Hematocrit 42.2 % (42.0-52.0) Mean 85.6 Corpuscular fl (82.0-101.0) Volume Mean 28.8 Corpuscular pg (29.0-33.0) Hemoglobin Mean 33.6 Corpuscular g/dl (32.0-37.0 Hemoglobin Conc ) ent Red Cell 13.2 Distribution % (11.5-14.5) Width Platelet Count 230 10^3/UL (140-41 5) Mean Platelet 10.0 Volume fl (7.4-10.4) Immature 0.500 Granulocytes % % (0.001-0.429) Neutrophils % 81.0 % (39.0-77.0) Lymphocytes % 11.0 % (15.0-51.0) Monocytes % 7.2 % (0.0-11.0) Eosinophils % 0.2 % (0.0-7.0) Basophils % 0.1 % (0.0-2.0) Nucleated Red 0.0 Blood Cells % /100WBC (0.0-0. 0) Immature 0.070 Granulocytes # 10^3/ul (0.0-0. 031) Neutrophils # 12.1 10^3/ul (1.6-7. 5) Lymphocytes # 1.6 10^3/ul (0.8-2. 9) Monocytes # 1.1 10^3/ul (0.3-0. 9) Eosinophils # 0.0 10^3/ul (0.0-0. 5) Basophils # 0.0 10^3/ul (0.0-0. 1) Nucleated Red 0.0 Blood Cells # 10^3/ul (0.0-0. 0) Sodium Level 140 mmol/L (135-144 ) Potassium 4.8 Level mmol/L (3.5-5.1 ) Chloride Level 106 mmol/L (97-110) Carbon Dioxide 25 Level mmol/L (21-31) Anion Gap 9 (5-13) Blood Urea 31 mg/dl (7-20) Nitrogen Creatinine 1.20 mg/dl (0.61-1.2 4) Est Glomerular > 60 Filtrat mL/min (>60) Rate mL/min Glucose Level 270 mg/dl (70-220) Calcium Level 9.5 mg/dl (8.4-10.2 ) Phosphorus 4.3 Level mg/dl (2.5-4.9) Magnesium 1.6 Level mg/dl (1.7-2.5) Bedside 263 Glucose mg/dL (70-220) MELE CASTELLANOS NP December 19, 2018 11:39
== END 2018-12-19 16:09 | disposition home or self-care (01) ==
LOC: SDS 06:24 → CCL 06:24 → REC 09:35 → ICU 11:34
PROVIDERS: ADMIT Internal Medicine; ATTEND Internal Medicine
DX: I25.10 Atherosclerotic heart disease of native coronary artery without angina pectoris (principal); I10 Essential (primary) hypertension; E11.9 Type 2 diabetes mellitus without complications; E78.5 Hyperlipidemia, unspecified; G47.33 Obstructive sleep apnea (adult) (pediatric); E66.9 Obesity, unspecified; Z68.37 Body mass index [BMI] 37.0-37.9, adult; F12.10 Cannabis abuse, uncomplicated; Z79.82 Long term (current) use of aspirin; Z79.84 Long term (current) use of oral hypoglycemic drugs
CPT/HCPCS: 80048; 81001; 81003; 82043; 82962; 83036; 83735; 84100; 84155; 84300; 85025; 85610; 85730; 87081; 92928; 93005; 93458; 94660; C1725; C1760; C1874; C1887; J1200; J1644; J1815; J2250; J2930; J3010; J3475; J7040; Q9967; Z7500; Z7610; G0378